=== PATIENT | female | born 1940 | race Caucasian/White ===

== ENCOUNTER 2019-02-26 10:25 | Outpatient (CLI) | payer MEDICARE ==
[~2019-02-26 10:25] MED LIST: ASCO-96 PO; ASPI81TA45 PO; B CO1TAB14 PO; C,E,1CAP PO; CALC-332 PO; CHOL200024 PO; CYCL-259 PO; FLUT9.9S NS; KRIL1CAP29 PO; LISI-167 PO; LORA10TA75 PO; MAGN250T8 PO; MULT1TAB60 PO; NAPH15DR4 EACHEYE; OXYC1TAB7 PO; SIMV80TA PO; SODI50SP2 NS; SULF-169 PO; Sinex NS
[2019-02-26] MEDS ORDERED: FLUT9.9S NS (11:11)
== END 2019-02-26 23:59 | disposition home or self-care (01) ==
LOC: STAR 10:25
PROVIDERS: ATTEND Thoracic Surgery (Cardiothoracic Vascular Surgery)
DX: Z02.9 Encounter for administrative examinations, unspecified (principal)

== ENCOUNTER 2019-03-05 10:29 | Inpatient (IN) ==
[~2019-03-05] VITALS: Ht 165.1 cm; Wt 71.7 kg
[2019-03-05] MEDS ORDERED: BUPIVACAINE/PF 0.5% ONE (12:43)
[2019-03-05] MEDS ORDERED: EPINEPHRINE 1 MG/ML, 1ML ONE (12:43)
[2019-03-05] MEDS ORDERED: INDOCYANINE GREEN 25 MG VIAL ONE (12:43)
[2019-03-05] MEDS ORDERED: LACTATED RINGERS 1,000 ML IV SCH (13:10)
[2019-03-05] MEDS ORDERED: MIDAZOLAM 1 MG/ML, 2ML ONE (13:18)
[2019-03-05] MEDS ORDERED: DEXAMETHASONE 4 MG/ML, 1ML ONE ×2 (13:21→13:50)
[2019-03-05] MEDS ORDERED: FENTANYL PF 250 MCG/5ML ONE (13:21)
[2019-03-05] MEDS ORDERED: PROPOFOL 10 MG/ML, 20ML ONE (13:22)
[2019-03-05] MEDS ORDERED: ROCURONIUM 10MG/ML,5ML ONE (13:22)
[2019-03-05] MEDS ORDERED: SUCCINYLCHOLINE 20 MG/ML, 10ML ONE (13:22)
[2019-03-05] MEDS ORDERED: ONDANSETRON 2MG/ML, 2ML ONE ×3 (13:50→15:34)
[2019-03-05] MEDS ORDERED: SUGAMMADEX 200 MG/2 ML IVPush ONE (15:34)
[2019-03-05] MEDS ORDERED: KETOROLAC 30 MG/1 ML ONE (15:37)
[2019-03-05] MEDS ORDERED: LACTATED RINGERS 1,000 ML IV ONE (15:46)
[2019-03-05] MEDS ORDERED: OXYcodone 5 MG/5 ML ORAL.SOL UDC PO PRN (16:00)
[2019-03-05] MEDS ORDERED: ENALAPRILAT 1.25 MG/ML, 2ML IVPush PRN (16:00)
[2019-03-05] MEDS ORDERED: TEMPLATE NON-FORMULARY MED. (Fluticasone Propionate (Flonase Allergy Relief) 1 SPRAY) NS SCH (16:00)
[2019-03-05] MEDS ORDERED: MIDAZOLAM 1 MG/ML, 2ML IV PRN (16:00)
[2019-03-05] MEDS ORDERED: hydrALAzine 20 MG/ML, 1ML IVPush PRN (16:00)
[2019-03-05] MEDS ORDERED: MEPERIDINE/PF 25MG/ML,1ML IVPush PRN (16:00)
[2019-03-05] MEDS ORDERED: ONDANSETRON ODT 8 MG PO PRN (16:00)
[2019-03-05] MEDS ORDERED: HYDROmorphone 2 MG/ML, 1ML IVPush PRN (16:00)
[2019-03-05] MEDS ORDERED: ACETAMINOPHEN 325 MG TABLET PO PRN (16:00)
[2019-03-05] MEDS ORDERED: ALBUTEROL SULFATE 2.5 MG/3 ML NPPB PRN (16:00)
[2019-03-05] MEDS ORDERED: ONDANSETRON 2MG/ML, 2ML IVPush PRN (16:00)
[2019-03-05] MEDS ORDERED: LABETALOL 5MG/ML, 20ML IV PRN (16:00)
[2019-03-05] MEDS ORDERED: LORazepam 2 MG/ML, 1ML IVPush PRN (16:00)
[2019-03-05] MEDS ORDERED: morphine SULFATE 10 MG/ML, 1ML IVPush PRN (16:00)
[2019-03-05] MEDS ORDERED: ONDANSETRON 2MG/ML, 2ML IV PRN (16:00)
[2019-03-05] MEDS ORDERED: DIAZEPAM 5 MG/ML, 2ML IVPush PRN (16:00)
[2019-03-05] MEDS ORDERED: HALOPERIDOL 5 MG/ML IV PRN (16:00)
[2019-03-05] MEDS ORDERED: FENTANYL PF 100 MCG/2ML IV PRN (16:00)
[2019-03-05] MEDS ORDERED: PROMETHAZINE 25 MG/ML, 1ML IV PRN (16:00)
[2019-03-05] MEDS ORDERED: hydrALAzine 20 MG/ML, 1ML IV PRN (16:00)
[2019-03-05] MEDS ORDERED: PROMETHAZINE 12.5 MG SUPP PR PRN (16:00)
[2019-03-05] MEDS ORDERED: EPHEDRINE 50 MG/ML, 1ML IVPush PRN (16:00)
[2019-03-05] MEDS ORDERED: MEPERIDINE/PF 25MG/ML,1ML ONE (16:32)
[2019-03-05] MEDS ORDERED: FENTANYL PF 100 MCG/2ML ONE (16:32)
[2019-03-05] MEDS ORDERED: ACETAMINOPHEN 650 MG/20.3 ML UDC ONE (16:32)
[2019-03-05 18:01] VITALS: BP 120/75
[2019-03-05] MEDS ORDERED: FLUTICASONE NASAL SPRAY 16GM NAS PRN (19:00)
[2019-03-05] MEDS ORDERED: NAPHAZOLINE/PHENIRAMINE OPHTH EACHEYE PRN (19:00)
[2019-03-05] MEDS: ACETAMINOPHEN 325 MG TABLET PO PRN (19:38)
[2019-03-05] MEDS: FAMOTIDINE 20 MG/2 ML IVPush SCH (19:38)
[2019-03-05 19:59] VITALS: BP 123/52
[2019-03-05] MEDS: HYDROcodone/APAP 5/325 TABLET PO PRN ×2 (22:01→22:38)
[2019-03-06] VITALS: BP 118/69
[2019-03-06 03:13] VITALS: BP 123/70
[2019-03-06] MEDS: ACETAMINOPHEN 325 MG TABLET PO PRN ×3 (03:21→17:48)
[2019-03-06 04:42] LABS: BASOPHILS # (AUTO) 0.02 x10^3/uL (0-0.1); BASOPHILS % (AUTO) 0 % (0-1); EOSINOPHILS # (AUTO) 0.07 x10^3/uL (0-0.4); EOSINOPHILS % (AUTO) 1 % (1-7); LYMPHOCYTES # (AUTO) 0.95 x10^3/uL (1-3.4); LYMPHOCYTES % (AUTO) 11 % (22-44); MD NO; MEAN CORPUSCULAR HEMOGLOBIN 30.1 pg (27.0-34.8); MEAN CORPUSCULAR HGB CONC 32.7 g/dL (32.4-35.8); MEAN CORPUSCULAR VOLUME 92.2 fL (80-100); MEAN PLATELET VOLUME 8.6 fL (7.4-10.4); MONOCYTES # (AUTO) 0.42 x10^3/uL (0.2-0.8); MONOCYTES % (AUTO) 5 % (2-9); NEUTROPHILS # (AUTO) 7.07 x10^3/uL (1.8-6.8); NEUTROPHILS % (AUTO) 83 % (42-75); PLATELET COUNT 204 x10^3/uL (130-400); RED BLOOD COUNT 4.34 x10^6/uL (3.82-5.3); RED CELL DISTRIBUTION WIDTH 13.8 % (9.6-15.2)
[2019-03-06 04:49] LABS: CHLORIDE 105 mmol/L (98-107)
[2019-03-06 04:53] LABS: ANION GAP 7 mmol/L (5-15); CALCIUM 8.6 mg/dL (8.5-10.1); CREATININE 0.72 mg/dL (0.55-1.02)
[2019-03-06 06:30] VITALS: BP 132/65
[2019-03-06] MEDS ORDERED: KETOROLAC 30 MG/1 ML IM PRN (08:30)
[2019-03-06] MEDS: FAMOTIDINE 20 MG/2 ML IVPush SCH (08:32)
[2019-03-06] MEDS: ENOXAPARIN 40 MG/0.4 ML SQ SCH (08:33)
[2019-03-06] MEDS ORDERED: HALOPERIDOL 5 MG/ML IM PRN (13:00)
[2019-03-06] MEDS ORDERED: HALOPERIDOL 5 MG/ML ONE (13:04)
[2019-03-06] MEDS ORDERED: PHARMACY INSTRUCTION MC PRN (14:00)
[2019-03-06] MEDS ORDERED: INSTRUCTION SEE COMMENTS XX PRN (14:00)
[2019-03-06 15:51] VITALS: BP 110/57
[2019-03-06 19:00] VITALS: BP 124/61
[2019-03-06] MEDS: MELATONIN 3 MG TABLET PO SCH (21:00)
[2019-03-06] MEDS: LISINOPRIL 10 MG TABLET PO SCH (22:15)
[2019-03-07 00:25] VITALS: BP 127/68
[2019-03-07 07:00] VITALS: BP 154/66
[2019-03-07] MEDS: ENOXAPARIN 40 MG/0.4 ML SQ SCH (08:41)
[2019-03-07] MEDS: FAMOTIDINE 20 MG/2 ML IVPush SCH (08:41)
[2019-03-07] MEDS: ACETAMINOPHEN 325 MG TABLET PO PRN ×2 (10:49→18:31)
[2019-03-07 12:07] VITALS: BP 160/81
[2019-03-07 19:13] VITALS: BP 150/60
[2019-03-07] MEDS: LISINOPRIL 10 MG TABLET PO SCH (20:17)
[2019-03-07] MEDS: MELATONIN 3 MG TABLET PO SCH (21:00)
[2019-03-08 01:06] VITALS: BP 154/68
[2019-03-08] MEDS: FAMOTIDINE 20 MG/2 ML IVPush SCH (07:38)
[2019-03-08] MEDS: ENOXAPARIN 40 MG/0.4 ML SQ SCH (07:38)
[2019-03-08 07:55] VITALS: BP 162/76
[2019-03-08] MEDS ORDERED: HYDR-3240 PO (09:49)
== END 2019-03-08 10:15 | disposition home or self-care (01) | DRG 164 ==
LOC: ORIP 12:08 → 4NW 18:50 → DCLOUNGE 03-08 10:07
PROVIDERS: ADMIT Thoracic Surgery (Cardiothoracic Vascular Surgery); ATTEND Thoracic Surgery (Cardiothoracic Vascular Surgery)
PROC: 07B74ZZ Excision of Thorax Lymphatic, Percutaneous Endoscopic Approach (ICD-10-PCS; 2019-03-05)
PROC: 03HY32Z Insertion of Monitoring Device into Upper Artery, Percutaneous Approach (ICD-10-PCS; 2019-03-05)
PROC: 0BTC4ZZ Resection of Right Upper Lung Lobe, Percutaneous Endoscopic Approach (ICD-10-PCS; principal; 2019-03-05 14:00)
DX: C34.11 Malignant neoplasm of upper lobe, right bronchus or lung (principal); E44.1 Mild protein-calorie malnutrition; I10 Essential (primary) hypertension; E78.5 Hyperlipidemia, unspecified; Z90.13 Acquired absence of bilateral breasts and nipples
CPT/HCPCS: 36415; 71045; 80048; 85025; 86850; 86900; 86923; 88305; 88309; 88312; C1729; G0378; J0171; J1100; J1650; J1885; J2250; J2405; J2704; J3010; J0330; J1630; J2175; J3490; J7120

== ENCOUNTER 2020-11-19 05:45 | Day surgery (SDC) | payer MEDICARE ==
[2020-11-17 15:46] LABS: BASOPHILS % (AUTO) 0 % (0-1); EOSINOPHILS % (AUTO) 0 % (1-7); LYMPHOCYTES % (AUTO) 6 % (22-44); MEAN CORPUSCULAR HEMOGLOBIN 29.4 pg (27.0-34.8); MEAN CORPUSCULAR HGB CONC 33.2 g/dL (32.4-35.8); MEAN PLATELET VOLUME 7.7 fL (7.4-10.4); MONOCYTES % (AUTO) 3 % (2-9); NEUTROPHILS % (AUTO) 91 % (42-75); PLATELET COUNT 224 x10^3/uL (130-400); RED BLOOD COUNT 5.06 x10^6/uL (3.82-5.3)
[2020-11-17 15:59] LABS: INTERNATIONAL NORMALIZED RATIO 1.06 (0.93-1.1); PROTHROMBIN TIME 11.3 Seconds (9.6-11.5)
[2020-11-17 16:02] LABS: ALBUMIN 3.9 g/dL (3.4-5.0); CHLORIDE 103 mmol/L (98-107)
[2020-11-17 16:16] LABS: ALANINE AMINOTRANSFERASE 27 U/L (12-78); ANION GAP 9 mmol/L (5-15); BILIRUBIN,TOTAL 0.4 mg/dL (0.2-1.0); CALCIUM 9.3 mg/dL (8.5-10.1); CREATININE 0.62 mg/dL (0.55-1.02); TOTAL PROTEIN 7.8 g/dL (6.4-8.2)
[2020-11-17 16:40] LABS: ALKALINE PHOSPHATASE > 2300 U/L (45-117)
[~2020-11-19] VITALS: Ht 165.1 cm; Wt 67.9 kg
[~2020-11-19 05:45] MED LIST changes: +ALBU8.5H8 INH; -CYCL-259 PO; +CYCL10TA2 PO; +HYDR-2214 PO; +IPRA4AER INH; +MULT-449 PO; -MULT1TAB60 PO; +ROSU5TAB PO; +nebulizer INH
[2020-11-19 06:37] VITALS: BP 174/68
[2020-11-19 06:40] VITALS: BP 174/68
[2020-11-19] MEDS ORDERED: CHLORHEXIDINE 15 ML UDC PO ONE (07:00)
[2020-11-19] MEDS ORDERED: LACTATED RINGERS 1,000 ML IV SCH (07:00)
[2020-11-19] MEDS ORDERED: DEXAMETHASONE 4 MG/ML, 1ML ONE (07:34)
[2020-11-19] MEDS ORDERED: ONDANSETRON 2MG/ML, 2ML ONE (07:34)
[2020-11-19] MEDS ORDERED: SUGAMMADEX 200 MG/2 ML IVPush ONE (07:34)
[2020-11-19] MEDS ORDERED: ROCURONIUM 10 MG/ML,10ML ONE (07:34)
[2020-11-19] MEDS ORDERED: SUCCINYLCHOLINE 20 MG/ML, 10ML ONE (07:34)
[2020-11-19] MEDS ORDERED: PROPOFOL 10 MG/ML, 20ML ONE (07:34)
[2020-11-19] MEDS ORDERED: OXYcodone 5 MG/5 ML ORAL.SOL UDC PO PRN (09:00)
[2020-11-19] MEDS ORDERED: ACETAMINOPHEN 325 MG TABLET PO PRN (09:00)
[2020-11-19] MEDS ORDERED: hydrALAzine 20 MG/ML, 1ML IV PRN (09:00)
[2020-11-19] MEDS ORDERED: ONDANSETRON 2MG/ML, 2ML IVPush PRN (09:00)
[2020-11-19] MEDS ORDERED: LABETALOL 5MG/ML, 20ML IV PRN (09:00)
[2020-11-19] MEDS ORDERED: PROMETHAZINE 25 MG/ML, 1ML IVPush PRN (09:00)
[2020-11-19] MEDS ORDERED: HYDROmorphone 1 MG/ML, 1ML INJ IVPush PRN (09:00)
[2020-11-19] MEDS ORDERED: EPHEDRINE 50 MG/ML, 1ML IVPush PRN (09:00)
[2020-11-19] MEDS ORDERED: METHOCARBAMOL 1,000 MG in DEXTROSE 5% 100 ML IV PRN (09:00)
[2020-11-19] MEDS ORDERED: LORazepam 2 MG/ML, 1ML IVPush PRN (09:00)
[2020-11-19] MEDS ORDERED: FENTANYL PF 100 MCG/2ML IV PRN (09:00)
[2020-11-19] MEDS ORDERED: MEPERIDINE/PF 25MG/0.5ML IVPush PRN (09:00)
[2020-11-19] MEDS ORDERED: ALBUTEROL SULFATE 2.5 MG/3 ML ONE (09:15)
[2020-11-19] MEDS ORDERED: ALBUTEROL SULFATE 2.5 MG/3 ML NPPB PRN (09:30)
== END 2020-11-19 11:40 | disposition home or self-care (01) ==
LOC: SDC 05:45 → EDSTATUS 07:30 → OUT 11:40
PROVIDERS: ATTEND Internal Medicine Critical Care Medicine
DX: R59.1 Generalized enlarged lymph nodes (principal); C34.90 Malignant neoplasm of unspecified part of unspecified bronchus or lung; C77.1 Secondary and unspecified malignant neoplasm of intrathoracic lymph nodes; I10 Essential (primary) hypertension; Z79.01 Long term (current) use of anticoagulants; Z79.899 Other long term (current) drug therapy; Z87.891 Personal history of nicotine dependence; Z85.3 Personal history of malignant neoplasm of breast; Z88.0 Allergy status to penicillin
CPT/HCPCS: 31624; 31652; 36415; 71045; 80053; 85025; 85610; 85730; 87070; 87205; 88112; 88172; 88173; 88305; 88361; 93005; J0330; J1100; J2405; J2704